=== PATIENT | female | born 1995 | race Caucasian/White ===

== ENCOUNTER 2016-07-08 17:01 | Emergency (ER) | payer OTHER ==
[~2016-07-08] VITALS: Ht 177.8 cm; Wt 87.1 kg
[2016-07-08 17:04] VITALS: Ht 177.8 cm; Wt 87.1 kg
[2016-07-08] MEDS ORDERED: PRED20TA PO (17:25)
[2016-07-08] MEDS ORDERED: AMO500 PO (17:25)
--- NOTE | 2016-07-08 17:31 | ERD ---
ER Documentation Chief Complaint Date/Time DATE: 07/08/16 TIME: 17:[address] x 2 days HPI Patient is a 21-year-old female who is accompanied by her mother complaining of sore throat for the past 2 days. She denies fever. She is tolerating oral intake with pain is worse with swallowing. She has not taken any medication but she has gargle salt water and drinking Tea helps temporarily. She denies any nausea vomiting or diarrhea. She denies any cough. Denies any ear pain. ROS All systems reviewed and are negative except as per history of present illness. Medications Home Meds Active Scripts Prednisone* (Prednisone*) 20 Mg Tab, 40 MG PO DAILY for 4 Days, TAB Prov:NELDA IRBY PA-C 07/08/16 Amoxicillin* (Amoxicillin*) 500 Mg Cap, 500 MG PO BID for 7 Days, CAP Prov:NELDA IRBY PA-C 07/08/16 FmHx Family History: No diabetes Physical Exam Vitals Vital Signs Date Time Temp Pulse Resp B/P Pulse Ox O2 Delivery O2 Flow Rate FiO2 07/08/16 17:04 98.1 73 18 118/73 99 Physical Exam General: well developed, well nourished, alert, nontoxic, no distress Head: normocephalic, atraumatic Eyes: PERRL, normal conjunctiva Neck: Supple, nontender, no lymphadenopathy, no midline tenderness Oropharynx: Bilateral tonsillar erythema and edema with scant exudates, 2+, uvula midline, no kissing tonsils, no stridor Respiratory: Clear to auscaultation bilaterally, speaks in full sentences, no use of accesory muscles or labored breathing, no rales, ronchi, or wheezing Cardiovascular: RRR, No murmurs Procedures/MDM 21-year-old female presents with is most likely strep pharyngitis. She has swollen tonsils that are erythematous with purulent exudates. Uvula is midline and she is tolerating oral intake. I doubt peritonsillar abscess. She'll be discharged with a short course of prednisone and amoxicillin.Recommended this patient follow up with her primary care doctor within 48 hours or return to the emergency room for any worsening of symptoms. However this time I do believe there is suitable for outpatient management. I answered all their questions and they agreed with the plan and were discharged home. Departure Diagnosis: Primary Impression: Pharyngitis, acute Condition: Stable Patient Instructions: Pharyngitis, Strep (Presumed) Additional Instructions: Call your primary care doctor TOMORROW for an appointment during the next 1-2 days.See the doctor sooner or return here if your condition worsens before your appointment time. NELDA IRBY PA-C Jul 08, 2016 17:31
== END 2016-07-08 17:26 | disposition home or self-care (01) ==
LOC: EDBD 17:01 → E/R 17:01
DX: J02.9 Acute pharyngitis, unspecified (principal)
CPT/HCPCS: 99284

== ENCOUNTER 2017-01-21 20:46 | Emergency (ER) | payer OTHER ==
[~2017-01-21] VITALS: Ht 180.3 cm; Wt 92.0 kg
[~2017-01-21 20:46] MED LIST: AMOX500C2 PO; PRED20TA PO
[2017-01-21 20:51] VITALS: Ht 180.3 cm; Wt 92.0 kg
[2017-01-21] MEDS ORDERED: AZIT250T94 PO (22:36)
[2017-01-21] MEDS ORDERED: SODI126M NASAL (22:36)
[2017-01-21] MEDS ORDERED: IBUP-1542 PO (22:36)
[2017-01-21] MEDS ORDERED: ACETAMINOPHEN 500 MG TAB PO STA (22:42)
--- NOTE | 2017-01-21 22:49 | ERD ---
ER Documentation Chief Complaint Date/Time DATE: 01/21/17 TIME: 22:43 Chief Complaint sore throat w/ fever today HPI 21-year-old female complaining of cough and runny nose 1 week, and fever and sore throat since last night. Is nonproductive. Patient reports right ear pain since this morning, with decreased hearing. She took ibuprofen at home for fever, last dose was 3 hours ago. Denies shortness of breath. Denies abdominal pain, vomiting, diarrhea. Denies headache or neck pain. Denies chest pain. ROS All systems reviewed and are negative except as per history of present illness. Medications Home Meds Active Scripts Sodium Chloride (Saline Nasal Mist) 126 Ml Mist, 2 SPRAY NASAL Q2H Y for NASAL CONGESTION, #1 BOTTLE Prov:GIO WELCH NP 01/21/17 Azithromycin* (Zithromax*) 250 Mg Tablet, 250 MG PO .ZPACK DIRECTED, #6 TAB TAKE 500 MG (2 TABS) THE FIRST DAY THEN 250 MG (1 TAB) DAYS 2-5 Prov:GIO WELCH NP 01/21/17 Ibuprofen* (Motrin*) 600 Mg Tab, 600 MG PO Q6H Y for PAIN AND OR ELEVATED TEMP, #30 TAB Prov:GIO WELCH NP 01/21/17 Prednisone* (Prednisone*) 20 Mg Tab, 40 MG PO DAILY for 4 Days, TAB Prov:NELDA IRBY PA-C 07/08/16 Amoxicillin* (Amoxicillin*) 500 Mg Cap, 500 MG PO BID for 7 Days, CAP Prov:NELDA IRBY PA-C 07/08/16 Allergies Allergies: Coded Allergies: No Known Allergy (Unverified , 01/21/17) PMhx/Soc Medical and Surgical Hx: pt denies Medical Hx, pt denies Surgical Hx Hx Alcohol Use: No Hx Substance Use: No Hx Tobacco Use: No Smoking Status: Never smoker Physical Exam Vitals Vital Signs Date Time Temp Pulse Resp B/P Pulse Ox O2 Delivery O2 Flow Rate FiO2 01/21/17 22:54 99.0 92 16 114/68 98 Room Air 01/21/17 20:51 102.1 126 20 115/69 97 Physical Exam General: Well-developed, well-nourished, conscious and coherent, in no distress Skin: Warm and dry without rash, good texture and turgor Head: Normocephalic without evidence of trauma Eyes: Sclera and conjunctivae normal; pupils equal, round, and reactive to light; extraocular movements are intact Ears: Canals are patent. Tympanic membranes are clear Nose/Face: The mucosa erythematous and swollen with clear nasal discharge. Mouth/throat: Mucous membranes are moist. Posterior pharynx edematous swollen without exudates Neck: Supple without meningismus or adenopathy. Carotids are equal. Trachea midline. No bruits or JVD Chest: Normal AP diameter. Good expansion without retractions. Nontender. Lungs are clear to auscultate bilaterally with good tidal volume Heart: Regular rate and rhythm. No murmur, rub, or gallops heard Abdomen: Soft and nontender without masses, guarding, or rebound. Bowel sounds are active. No hepatosplenomegaly Extremities: Full range of motion. Good strength bilaterally. No clubbing, cyanosis, or edema. Peripheral pulses are intact. Sensation intact Neuro: Alert and oriented 4, GCS 15. Cranial nerves grossly intact. Motor and sensory exams nonfocal. Moves all extremities. Speech clear. Gait normal Results 24 hrs Current Medications Medications (Trade) Dose Ordered Sig/Linda Route PRN Reason Start Time Stop Time Status Last Admin Dose Admin Acetaminophen (Tylenol Tab) 500 mg ONCE STAT PO 01/21/17 22:42 01/21/17 22:43 DC 01/21/17 22:48 Procedures/MDM Well-appearing 21-year-old female presented ED with cough and runny nose 1 week , and fever 1 day. Exam findings are unremarkable. Likely patient has a viral upper respiratory infection. However, I have slight concern for new onset fever, suspicious for secondary bacterial infection. No sign of pneumonia at this time. Low suspicion for sepsis. Patient will be given azithromycin prescription and advised to follow-up with her PCP in 2-3 days. Patient appears well, stable for discharge and outpatient management. Medical decision making shared with patient and family. Education provided to patient and family. Patient and family expressed understanding of the plan. Medications on discharge: Azithromycin, ibuprofen, saline nasal spray. Follow-up: Primary care provider in 2-3 days or return to ED if worse. Disclaimer: Inadvertent spelling and grammatical errors are likely due to EHR/ dictation software use and do not reflect on the overall quality of patient care. Also, please note that the electronic time recorded on this note does not necessarily reflect the actual time of the patient encounter. Departure Diagnosis: Primary Impression: URI (upper respiratory infection) URI type: acute nasopharyngitis (common cold) Qualified Code: J00 - Acute nasopharyngitis Condition: Stable Patient Instructions: Adult Self-Care for Colds Referrals: COMM[facility]ITY CLINICS YOU HAVE RECEIVED A MEDICAL SCREENING EXAM AND THE RESULTS INDICATE THAT YOU DO NOT HAVE A CONDITION THAT REQUIRES URGENT TREATMENT IN THE EMERGENCY DEPARTMENT. FURTHER EVALUATION AND TREATMENT OF YOUR CONDITION CAN WAIT UNTIL YOU ARE SEEN IN YOUR DOCTORS OFFICE WITHIN THE NEXT 1-2 DAYS. IT IS YOUR RESPONSIBILITY TO MAKE AN APPOINTMENT FOR FOLOW-UP CARE. IF YOU HAVE A PRIMARY DOCTOR --you should call your primary doctor and schedule an appointment IF YOU DO NOT HAVE A PRIMARY DOCTOR YOU CAN CALL OUR PHYSICIAN REFERRAL HOTLINE AT IF YOU CAN NOT AFFORD TO SEE A PHYSICIAN YOU CAN CHOSE FROM THE FOLLOWING [facility] [address] [facility]. [facility] [address] [facility] [facility] [address] [facility] [facility] [address] [facility]. [facility] [address] [facility]. [facility]. [address] Additional Instructions: Call your primary care doctor TOMORROW for an appointment during the next 2-3 days.See the doctor sooner or return here if your condition worsens before your appointment time. GIO WELCH NP Jan 21, 2017 22:49
[2017-01-21 22:54] VITALS: BP 114/68; PULSE 92; RESP 16; TEMP 99
== END 2017-01-21 22:54 | disposition home or self-care (01) ==
LOC: FTE 20:46
DX: J00 Acute nasopharyngitis [common cold] (principal)
CPT/HCPCS: Z7502; Z7610; 99283